=== PATIENT | male | born 1985 | race Caucasian/White ===

== ENCOUNTER 2024-09-06 01:44 | Emergency (ER) | payer OTHER, SELFPAY ==
[2024-09-06] MEDS ORDERED: Bacitracin 1 PK ONE (02:06)
[2024-09-06] MEDS ORDERED: Boostrix 0.5 ML (Tdap) VIAL (>/=7 yrs of age) ONE (02:08)
== END 2024-09-06 02:23 | disposition home or self-care (01) ==
LOC: MADERS 01:44
DX: S61.531A Puncture wound without foreign body of right wrist, initial encounter (principal); R50.9 Fever, unspecified; F17.210 Nicotine dependence, cigarettes, uncomplicated; W22.8XXA Striking against or struck by other objects, initial encounter
CPT/HCPCS: 87070; 87077; 87205; 90715; 99283